=== PATIENT | male | born 1965 | race Caucasian/White ===

== ENCOUNTER → 2023-05-19 07:23 | Outpatient (REF) | payer BC, SELFPAY | LOC: RAD 07:23 | PROVIDERS: ATTENDING PHYSICIAN Internal Medicine | DX: S09.90XA Unspecified injury of head, initial encounter (principal); H53.9 Unspecified visual disturbance; R51.9 Headache, unspecified | CPT/HCPCS: 70450 ==

== ENCOUNTER 2024-07-10 22:17 | Inpatient (IN) | payer BC, SELFPAY ==
[2024-07-10] VITALS (10 sets, daily range): BP systolic 115–160; BP diastolic 73–145; BMI 31.4; BMI 29.9
--- NOTE | 2024-07-10 17:06 | ED.GENMED ---
History of Present Illness
General
Chief Complaint: Breathing Problem
Source: patient
Time Seen by Provider: 07/10/24 16:57
History of Present Illness
History of Present Illness:
59-year-old male presents to the emergency room complaining of shortness of breath with exertion as well as chest tightness with exertion. Patient noticed significant change in his ability to ambulate a couple days ago. He was getting off of
flight and became very short of breath walking up the chest with a ramp. He continued to feel short of breath with exertion at home over the weekend but today had to stop just going up a flight of steps because he was severely short of breath.
Patient denies any significant medical history. He was recently diagnosed with hypertension. However he is only taking Claritin. Patient states he has been experiencing some chest discomfort intermittently over the past 6 weeks. This did not
seem to be related to exertion. He attributed to allergies. Up until this weekend he was able to perform all activities without any limitations.
Past History
Past History
ED Past Medical History: None
Social History
Living: with family
Employment: Employed
Phy Exam
Physical Exam
Physical Exam:
General: Awake, Alert, Oriented X3. No acute distress.
Vitals: unremarkable
Head: Atraumatic
Eyes: Pupils equal, EOMI
Throat: Airway intact, no exudates
Neck: Trachea midline
Lungs: Clear and equal b/l
Heart: Regular rate, no murmurs
Abd: Soft, Nontender, No pulsatile mass
Neuro: nonfocal
Skin: Warm, dry, no rash
Extremities: pulses equal b/l, no edema
Scores
Heart Failure Risk
Heart Failure Risk Score: Not Applicable
PE Wells Score
Symptoms of DVT: No
No alternative diagnosis better explains the illness: Yes
Tachycardia with pulse > 100: No
Immobilization (>=3 days) or surgery within previous 4 weeks: No
Prior history of DVT or pulmonary embolism: No
Presence of hemoptysis: No
Presence of malignancy: No
Pulmonary Embolism Risk Score: 6
Probability of PE: Pt is moderate risk
Course
Orders/Labs/Results
Orders:
Orders
07/10/24 16:47
Electrocardiogram (*1) Urgent
Reason for Study: Other
Other Reason for Exam: Respiratory Distress
EKG- Treatment ONCE
07/10/24 17:05
CT Chest PE Study Urgent
Comment:
Reason For Exam: sob with minimal exertion
07/10/24 17:25
Complete Blood Count/With Diff Urgent
Comprehensive Metabolic Panel Urgent
NT-proBNP Urgent
Troponin I Urgent
07/10/24 17:26
D-Dimer Urgent
07/10/24 18:57
Heparin 8,900 units IV NOW STA
Nursing to Place Non Medication Order As Directed
Physician Order: PTT 6 hours after initial start of Heparin infusion
Above order entered?: Yes
07/10/24 19:00
Heparin 71083 Units/250 ml 25,000 units in 250 ml IV PER PROTOCOL
Weight to be used for heparin protocol in kilograms (kg):: 110.7
Protocol:: DVT/PE
PTT Goal Range to be used:: PTT 73 to 111 seconds
Order type:: Initial
INITIAL Infusion Dose (UNITS/KG/hr) & then follow protocol:: 18 units/kg/hr
Infusion Dose in UNITS/hr & then follow protocol (UNITS/hr):: 2,000
INFUSION RATE in mL/hr & then follow protocol (mL/hr):: 20
For DVT/PE algorithm, re-bolus for low PTT?: Yes
PTT less than or equal to 64 seconds:: Re-bolus 80 units/kg (max 10,000units). Increase by 500 units/hr
(+ 5mL/hr)
PTT 64.1 to 72.9 seconds:: Re-bolus 40 units/kg (max 5,000 units). Increase by 200 units/hr
(+ 2mL/hr)
PTT 73 to 111 seconds:: Target Range. No change in rate.
PTT 111.1 to 130.9 seconds:: Decrease rate by 200 units/hr (- 2 mL/hr)
PTT 131 to 199.9 seconds:: HOLD for 1 hr. Then decrease by 400 units/hr (- 4mL/hr)
PTT greater than or equal to 200 seconds:: HOLD for 2 hrs & Notify Provider. Then decrease by 500 units/hr
(- 5mL/hr)
Lab follow-up:: Each change, PTT q6h until 2 consecutive are therapeutic. Then
PTT daily.
07/10/24 19:08
Heparin 4,400 units IV PRN PRN
07/10/24 19:09
Heparin 8,900 units IV PRN PRN
07/10/24 19:23
PTT Urgent
Comment: Obtain baseline before beginning heparin infusion if not already collected
07/11/24 01:46
PTT Urgent
Comment: repeat PTT 6 hours post heparin
Abnormal Lab Results
07/10/24 07/10/24
17:25 17:26
Abs Immat Gran (auto) 0.1 H 10^3/uL
(0-0.05)
Absolute Monos (auto) 0.7 H 10^3/uL
(0.1-0.6)
Immature Gran % 0.7 H %
(0-0.5)
D-Dimer 17.57 H ug/mlFEU
(0.00-0.50)
Glucose 109 H mg/dl
(70-99)
Troponin I 0.088 H* ng/ml
07/10/24 17:25
07/10/24 17:25
Vital Signs
Initial and Last Documented VS:
Initial Vital Signs
Temp Pulse Resp BP Pulse Ox
97.9 F 95 22 160/103 94
07/10/24 16:43 07/10/24 16:43 07/10/24 16:43 07/10/24 16:43 07/10/24 16:43
Last Documented Vital Signs
Temp Pulse Resp BP Pulse Ox
97.9 F 83 17 159/145 98
07/10/24 16:43 07/10/24 20:00 07/10/24 20:00 07/10/24 20:00 07/10/24 20:00
MDM/Problems Addressed
Differential Diagnosis Includes:
PE, pneumothorax, pneumonia, acute coronary syndrome, heart failure
MDM/Problems Addressed:
Patient presents with severe shortness of breath minimal exertion. He has risk factors for PE and that he travels extensively. Hemodynamically stable. Not hypoxic here. Labs show a normal white blood cell count, hemoglobin, platelet count.
Chemistries are unremarkable. Troponin is elevated at 0.088. Based upon the patient's symptoms on presentation and overall story my suspicion for PE was quite high. A CTA was ordered immediately after my evaluation. His D-dimer did result as
highly elevated. I reviewed the patient's CTA as soon as return from radiology. It was evident he had significant clot burden bilaterally with a saddle component which appeared very thin. PERT alert was called. Case discussed with both Kisha.
Claire for pulmonary critical care as well as with Dr. Clifton he is on-call for interventional radiology. They both feel that if the patient is hemodynamically stable there is no benefit for intervention at this time. Heparin ordered immediately
after the patient's CT. Patient will be admitted for anticoagulation and further workup and close monitoring.
*Radiology
Radiology exam reviewed: preliminary read by ED provider (Extensive bilateral pulmonary emboli) and radiology read reviewed
*Pulse Oximetry
Patient hypoxic: no
*EKG
Interpreted by ED Provider?: Yes
Heart Rate: 92
Rate: normal
Rhythm: sinus
[place]: normal axis
Interval: normal interval
QRS Pattern: normal QRS
Ischemia: non-specific ST changes
*[employer] Interpretation
Rate: normal
Interpretation: normal
Rhythm: sinus
*Critical Care Note
Total Time (30-74mins, 75-104mins- exclusive of procedures): 42 min
comment:
Critical care statement: A total of 42 minutes of critical care time was provided for this patient. This includes management of unstable vital signs, evaluation of the patient at bedside, reviewing the patient's pertinent medical records, discussion
with consultants, review of old EKGs and review of pertinent medical records. This time with separate from time utilized to perform the aforementioned documented procedures
ED Attending Note
-
Portions of this chart may have been created with voice recognition software.� Occasional wrong word or��sound alike� substitutions may have occurred due to the inherent limitations of voice recognition software.
Discharge Plan
Departure
Patient Disposition: Admit
Date of Disposition: 07/10/24
Time of Disposition: 19:42
Admit to: IMU
Presentation/result/management discussed w/ accepting MD/DO: Hospitalist
Patient with high blood pressure during this ER visit?: No
Condition: Serious
Discharge Problem:
Pulmonary emboli
Prescriptions:
No Action
loratadine [Claritin] 10 mg Tablet
10 mg PO DAILYPRN PRN (Reason: allergies)
Referrals:
Yan Ryan MD [Family Provider] -
Interventions
Interventions:
*Risk Screen - Suicide Last Done: 07/10/24 16:43
*General Assessment Last Done: 07/10/24 16:43
*Neglect/Abuse Screening Last Done: 07/10/24 17:13
*ED- Fall Risk Assessment Last Done: 07/10/24 17:13
*ED COVID-19 Vaccine History Last Done: 07/10/24 17:13
ED- Cardiac Assessment Last Done: 07/10/24 17:13
ED- Pulmonary Assessment Last Done: 07/10/24 17:13
Discharge Date and Time
Print Language: TURKMEN
[2024-07-10 17:44] LABS: % Eosinophils 2.9 % (0-6); % Immature Granulocytes 0.7 % (0-0.5); % Monocytes 8.7 % (1.7-9.3); % Neutrophils 64.7 % (42.2-75.2); Absolute Basophils 0.1 10^3/uL (0-0.2); Absolute Eosinophils 0.2 10^3/uL (0-0.7); Absolute Immature Granulocytes 0.1 10^3/uL (0-0.05); Absolute Lymphocytes 1.8 10^3/uL (1.2-3.4); Absolute Monocytes 0.7 10^3/uL (0.1-0.6); Absolute Neutrophils 5.4 10^3/uL (1.4-6.5); Hematocrit 43.9 % (39.0-52.0); Mean Corp Hgb Conc. 34.2 g/dL (33.0-37.0); Mean Corpuscular Hgb 29.6 pg (27.0-31.0); Mean Corpuscular Volume 86.8 fL (80.0-94.0); Mean Platelet Volume 9.9 fL (7.4-10.4); Nucleated Red Blood Cells % 0 % (-); Platelet Count 187 10^3/uL (130-400); Red Blood Cell Count 5.06 10^6/uL (4.70-6.10); Red Cell Dist. Width 13.7 % (11.5-14.5); White Blood Cell Count 8.4 10^3/uL (4.8-10.8)
[2024-07-10 17:52] LABS: ALT (SGPT) 15 U/L (0-50); AST (SGOT) 21 U/L (17-59); Alkaline Phosphatase 66 U/L (38-126); Blood Urea Nitrogen 12 mg/dl (9-20); Calcium 9.4 mg/dl (8.4-10.2); Carbon Dioxide 29 mmol/L (22-30); Chloride 104 mmol/L (98-107); Estimated Creatinine Clearance 118 ml/min; Glucose 109 mg/dl (70-99); Potassium 4.5 mmol/L (3.5-5.1); Sodium 139 mmol/L (135-145); Total Bilirubin 0.6 mg/dl (0.2-1.3); Total Protein 6.9 g/dl (6.3-8.2); eGFR > 60.00
[2024-07-10 17:58] LABS: D-Dimer 17.57 ug/mlFEU (0.00-0.50)
[2024-07-10 18:03] LABS: NT-proBNP 940 pg/ml; Troponin I 0.088 ng/ml
[2024-07-10 19:40] LABS: APTT 34.3 Sec (23.4-35.0)
[2024-07-10] MEDS: HEPARIN 8900 UNITS IV (19:45)
[2024-07-10] MEDS: HEPARIN 25000 UNITS/250 ML IV (19:46)
--- NOTE | 2024-07-10 21:23 | HPS.HSE ---
Family Physician
-
Family Physician: Yan Ryan
Chief Complaint
-
shortness of breath
History of Present Illness
Is a 59-year-old male with no known severe past medical history presenting to the emergency department with approximately 3 days of worsening shortness of breath and dyspnea on exertion.
Patient reports that he frequently flies between [place] and to [facility] for his walk. He reports that during his most recent flight to he started having shortness of breath and pain weakness and inability to even lift his luggage. This was
associated with some burning pain in his left upper chest. There was improvement and was able to golf the next day which was Wednesday. He flew back to [place] on Wednesday and since then he feels like he has been having congestion in his chest.
He has a mild dry cough which has been ongoing for several weeks and he attributes to allergies and GERD. Patient reports over the last 2 days he was even having trouble walking a flight of stairs. Denies feeling dizzy or lightheaded. He reports
chest pain in the substernal region without any radiation. Worse with inspiration. He denies any lower extremity swelling or calf tenderness. Reports family history of IN at a young age as well as breast cancer. He denies any personal history of
breast cancer. He reported that he had a negative COVID test this morning and read to his PMD.
In the emergency department here he was afebrile, oxygen saturation was 93 to 95% on room air. Blood pressure was 128/81 with a pulse of 98. ECG shows normal sinus rhythm at rate of 92. His troponin was elevated at 0.08. BNP was also slightly
elevated at 900. CBC unremarkable. Electrolytes BUN/creatinine were normal.
He had a CT of the chest with PE protocol which showed bilateral upper and lower lobe large volume pulmonary embolism with faint saddle embolism. The RV to LV ratio is 1.4.
Medical History
Past Medical History
Past Medical History: Reports Other (sinus allergies)
Past Surgical History: Reports None
Social History
Tobacco: Non-smoker
Alcohol: None
Drug: None
Personal:
Living: With Family
Employment: Not Employed
Family History
Family History: Early CAD and Cancer (mother breast ca)
Allergies / Home Medications
Allergies reflects when Allergies were last updated in [facility].
Home Medications with original date entered in [facility]
Allergy/Medication List:
Allergies
Allergy/AdvReac Type Severity Reaction Status Date / Time
No Known Drug Allergies Allergy NA Verified 07/10/24 16:43
apples,nuts,fresh fruits Allergy scratchy Uncoded 07/10/24 16:43
throat and
congestion
Home Medications
loratadine 10 mg tablet (Claritin) 10 mg PO DAILYPRN PRN allergies 07/10/24
Review of Systems
-
History Source: Patient
Constitutional: Reports No Symptoms
EENT: Reports No Symptoms
Respiratory: Reports No Symptoms
Cardiac: Reports No Symptoms
Abdomen/GI: Reports No Symptoms
: Reports No Symptoms
Musculoskeletal: Reports No Symptoms
Skin: Reports No Symptoms
Neurological: Reports No Symptoms
Endocrine: Reports No Symptoms
Hematologic/Lymphatic: Reports No Symptoms
Psych: Reports No Symptoms
Physical Exam
Vital Signs
Vital Signs
Temp Pulse Resp BP Pulse Ox
97.9 F 98 25 128/81 95
07/10/24 16:43 07/10/24 21:00 07/10/24 21:00 07/10/24 21:00 07/10/24 21:00
Physical Exam
General: Well Developed, Well Nourished, No Apparent Distress and Comfortable
HEENT: NormoCephalic, Anicteric, Moist mucous membranes and Atraumatic
Respiratory: Clear
Cardiac: S1/S2 and Regular Rhythm
Breast: Deferred by me
GI: Soft, Non Tender, Non Distended and Normal Bowel Sounds
Rectal: Deferred by Provider
Genito-urinary: Deferred by me
Musculoskeletal: No Clubbing, No Cyanosis and No Edema
Skin: Warm
Neuro: AO x 3 and Nonfocal/grossly intact
Hematologic/Lymphatic: No Lymphadenopathy
Psych: Calm
Laboratory Results
-
07/10/24 17:25
07/10/24 17:25
Laboratory Results
APTT 34.3 Sec (23.4-35.0) 07/10/24 19:23
Total Bilirubin 0.6 mg/dl (0.2-1.3) 07/10/24 17:25
AST 21 U/L (17-59) 07/10/24 17:25
ALT 15 U/L (0-50) 07/10/24 17:25
Alkaline Phosphatase 66 U/L (38-126) 07/10/24 17:25
Troponin I 0.088 ng/ml H* 07/10/24 17:25
Data Reviewed
-
CT Scan: Report Reviewed by me
Medical Tests (Nuc Med, Echo, EKG etc): Image Personally Visualized and interpreted
Lab Data: Labs Reviewed by me
Old Records: Reviewed
Impression/Plan
-
IMPRESSION:
59-year-old with no significant medical history presented to the emergency department with dyspnea on exertion, shortness of breath found to have bilateral pulmonary emboli with thin saddle PE. He is hemodynamically stable. He does have a mild
troponin elevation of 0.08. RV to LV ratio of 1.4. Evaluated by the pulmonary and IR, no indication for acute interventional procedure at this time.
PLAN:
PE -presumably provoked due to frequent long flights across the country. No family history. Negative covid test.
- admit to telemetry
- continue heparin gtt for now
- npo for now except sips and ice
- pain control as needed
- oxygen as needed
- if stable, can advance diet in am and transition
- trend troponin, echo in am
Code Status - Full code
[2024-07-11] MEDS: D5/0.9% SODIUM CHLORIDE 1000 IV ×2 (00:04→15:24)
[2024-07-11 01:01] LABS: Troponin I 0.046 ng/ml
[2024-07-11 02:28] LABS: APTT > 200.0 Sec (23.4-35.0)
--- NOTE | 2024-07-11 02:30 | PTCARENOTE ---
Notified House Provider Sridhar Woods that pt's PTT>200. Hep gtt now on hold for 2 hrs then will be restarted at 1500 units/hr or 15mL/hr per protocol.
[2024-07-11 03:46] VITALS: BP 116/75
[2024-07-11] MEDS: PROTONIX 40 MG PO (07:23)
[2024-07-11 07:46] VITALS: BP 114/77
[2024-07-11 07:51] LABS: Hematocrit 42.2 % (39.0-52.0); Hemoglobin 14.4 g/dL (13.0-18.0); Mean Corp Hgb Conc. 34.1 g/dL (33.0-37.0); Mean Corpuscular Hgb 29.8 pg (27.0-31.0); Mean Corpuscular Volume 87.2 fL (80.0-94.0); Mean Platelet Volume 9.8 fL (7.4-10.4); Platelet Count 173 10^3/uL (130-400); Red Blood Cell Count 4.84 10^6/uL (4.70-6.10); Red Cell Dist. Width 13.6 % (11.5-14.5)
[2024-07-11 08:05] LABS: APTT 62.4 Sec (23.4-35.0)
[2024-07-11 08:10] LABS: Troponin I 0.013 ng/ml
[2024-07-11 08:15] LABS: Blood Urea Nitrogen 7 mg/dl (9-20); Calcium 9.1 mg/dl (8.4-10.2); Carbon Dioxide 28 mmol/L (22-30); Chloride 106 mmol/L (98-107); Estimated Creatinine Clearance 105 ml/min; Glucose 108 mg/dl (70-99); Potassium 4.2 mmol/L (3.5-5.1); Sodium 141 mmol/L (135-145); eGFR > 60.00
--- NOTE | 2024-07-11 08:18 | CON.PUL ---
Consultation
Consultation Request
Date/Time Consultation Requested: 07/10/2024 - 2315
Date/Time Consultation Performed: 07/11/2024813
Requesting Provider: Dr. Redman
Performing Provider: Dr. Graham
Reason for Consultation: Saddle PE
Medical History
-
Chief Complaint: Chest tightness + SOB
History of Present Illness:
59-year-old male with a past medical history of hyperlipidemia, hypertension, GERD, hiatal hernia, internal hemorrhoids and chronic sinusitis who presents with chest tightness + SOB. He went up a flight of steps prior to arrival on 07/10/2024 and
felt severely short of breath, which then made him come to the ER for evaluation. 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 He reported that during his most recent flight he began having
SOB and pain where he could not properly lift his luggage. Pain was described as a burning sensation in his left upper chest. This did improve, however, and he was able to play golf the next day which was this past Wednesday (07/08/2024). He has
had a mild cough which has been nonproductive for the last several weeks and attributes this to allergies and reflux. Over the last 2 days he has had substernal chest pain that worsens with a deep breath and SOB with stairs. Because he was
severely short of breath while going up the steps prior to arrival, this is what brought him to the ER. Initially he was afebrile to 97.9 �F, pulse rate 95, respiratory rate 22, BP 160/103 and saturating 94% on room air. Initial labs showed WBC
WNL at 8.4, Hb 15, platelet count 187, troponin 0.088, proBNP 940 and D-dimer significantly elevated at 17.57. CTA chest obtained showing an acute saddle PE with RV strain. PE extended to all lobes of the lung bilaterally. He was started on a
heparin infusion in the ER and admitted to telemetry. Pulmonary service now consulted for additional management/recommendations.
When I saw the patient, he was resting in a chair in no acute distress. Patient's , Adam, at bedside and all questions were answered. Patient currently on room air breathing comfortably. He denies chest pain, CARROLL, nausea, fevers or chills.
His breathing is actually improved today since being on heparin drip.
PMHx: Chronic sinusitis, internal hemorrhoids, GERD, hiatal hernia, hypertension, hyperlipidemia, family history of early CAD
PSHx: Tonsillectomy
Past Medical History
Past Medical History: Other (Above as per HPI)
Past Surgical History: Other (Above as per HPI)
Social History
Tobacco: Non-smoker
Alcohol: Occasional
Drug: None
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
Family History
Family History: CAD (Father), Cancer (Mother: Breast cancer + leukemia; Sister: Breast cancer), Diabetes (Maternal grandmother) and Other (Mother: Thyroid disease)
Allergies / Home Medications
Allergies
Allergy/AdvReac Type Severity Reaction Status Date / Time
No Known Drug Allergies Allergy NA Verified 07/10/24 16:43
apples,nuts,fresh fruits Allergy scratchy Uncoded 07/10/24 16:43
throat and
congestion
Home Medications
�Medication �Instructions �Recorded �Confirmed �Last Taken �Type
loratadine 10 mg tablet (Claritin) 10 mg PO DAILYPRN PRN allergies 07/10/24 07/10/24 07/09/24 History
Review of Systems
-
History Source: Patient
All other systems: Negative unless noted
Vitals / Labs / Diagnostic Testing
Vital Signs
Temp Pulse Resp BP Pulse Ox
98.2 F 85 18 114/77 94
07/11/24 07:46 07/11/24 07:46 07/11/24 07:46 07/11/24 07:46 07/11/24 07:46
Lab Data
07/11/24 07:30
07/11/24 07:30
Laboratory Results
07/10/24 07/11/24 07/11/24
19:23 01:40 07:30
APTT 34.3 > 200.0 H* 62.4 H
Diagnostic Testing:
Physical Exam
-
HEENT: Normocephalic and Anicteric
Cardiovascular: S1/S2 and Peripheral Edema (negative)
Respiratory: Clear, Wheeze (negative), Rales (negative), Rhonchi (negative) and Accessory Resp Muscle Use (negative)
GI: Soft, Non Distended, Non Tender and Normal Bowel Sounds
Neurology: AO x 3 and Tremors (negative)
Skin: Warm and Dry
General: Respiratory Distress (negative), Comfortable, Fever (negative) and Chills (negative)
Assessment
-
Assessment: 59-year-old male with a past medical history of hyperlipidemia, hypertension, GERD, hiatal hernia, internal hemorrhoids and chronic sinusitis who presents with chest tightness + SOB. He went up a flight of steps prior to arrival on
07/10/2024 and felt severely short of breath, which then made him come to the ER for evaluation. 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 He reported that during his most recent flight he
began having SOB and pain where he could not properly lift his luggage. Pain was described as a burning sensation in his left upper chest. This did improve, however, and he was able to play golf the next day which was this past Wednesday
(07/08/2024). He has had a mild cough which has been nonproductive for the last several weeks and attributes this to allergies and reflux. Over the last 2 days he has had substernal chest pain that worsens with a deep breath and SOB with stairs.
Because he was severely short of breath while going up the steps prior to arrival, this is what brought him to the ER. Initially he was afebrile to 97.9 �F, pulse rate 95, respiratory rate 22, BP 160/103 and saturating 94% on room air. Initial
labs showed WBC WNL at 8.4, Hb 15, platelet count 187, troponin 0.088, proBNP 940 and D-dimer significantly elevated at 17.57. CTA chest obtained showing an acute saddle PE with RV strain. PE extended to all lobes of the lung bilaterally. He was
started on a heparin infusion in the ER and admitted to telemetry. Pulmonary service now consulted for additional management/recommendations.
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
Impression:
#Acute saddle submassive PE with high risk features (PESI score: Class II --> Low risk) likely provoked given recent history of frequent long flights across country + sedentary at home for his job
#Elevated troponin likely due to above (troponin peaked at 0.088 on 07/10/2024)
#Elevated proBNP likely due to acute PE
#Right lower extremity DVT involving femoral + popliteal veins
Plan:
- Patient presented with chest tightness, SOB + dyspnea on exertion and was found to have a saddle pulmonary embolism with RV strain seen both radiographically and chemically
- No family Hx of DVT or PE; no personal Hx of malignancy and no prior Hx of VTE; he will need to obtain age-appropriate cancer screening testing after discharge (i.e. c-scope, PSA)
- He says he is usually on the road for his job and when he is home he is on [employer] teams for sometimes hours on - this puts him at an increased risk for a DVT/PE
- Need to check a transthoracic echo --> shows a mildly enlarged RV with normal RV systolic function, with severe pulmonary hypertension with PASP 74 mmHg with moderate TR
- He remains normotensive with minimal tachypnea and no hypoxia; no need for catheter directed thrombolysis or embolectomy at this time; also echo shows severe PH but with normal RV systolic function, hence no need for retrievable IVC filter at
this time
- Heparin drip started in the ER
- Continue with systemic AC and after 48 hrs of parenteral AC then would switch to NOAC, preferably Eliquis
- Duplex lower extremity US shows a right lower extremity DVT involving the femoral + popliteal veins
- CM consult to assess if Eliquis is affordable
- Usually I recommend outpatient hematology consult for hypercoagulable workup and to assist with duration of AC - given that this clot is likely provoked, unclear if hematology consult is needed
- Bedrest for 24-48 hours given the large clot burden in this patient with a saddle PE and proximal DVTs in RLE
- Maintain SpO2 >90-94% with supplemental O2 as needed
- prn nebulized bronchodilators - not currently bronchospastic
- Incentive spirometer encouraged q1hr while awake
- Replete electrolytes with K>4, Mg>2
- Trend H/H and transfuse if needed to keep Hb>7g/dL; keep plt>20k, unless there is concern for bleeding then keep plt>50k
- Maintain euglycemia with goal BG >100 and <180
- DVT ppx: heparin gtt
Pulmonary service will continue to follow along. Outpatient pulmonary office follow-up will be arranged to repeat echo, check full PFTs and to assure his symptoms of SOB/PRATER are improving
Data:
CTA Chest 07/10/2024: Bilateral upper and lower lobe large volume pulmonary embolism. The RV to LV ratio is 1.4.
Pulmonary artery branching order level of the most proximal pulmonary embolism: First order/central thin saddle embolism.
Peripheral lower extremity Duplex US 07/11/2024:DVT of the right femoral and popliteal veins.
Total time spent today was 58 minutes for this encounter. Time includes reviewing laboratory test/imaging results, reviewing pertinent medical records, obtaining and reviewing medical history, performing an appropriate exam, ordering medications,
tests and procedures. Time also includes documentation of this encounter, coordinating patient care and communicating with other healthcare professionals. Total time does not include separately billed tests performed on this date of service.
--- NOTE | 2024-07-11 10:29 | W.PN.HOSP.TC ---
Today's Communication/Plan
-
see PN
Assessment / Plan
Assessment / Plan
59yo M with PMHX of atopic d/o came with SOB on excertion started after 5hour flight. 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 Found pulmonary embolism and LE DVT
A/P:
#Acute provoked VTE
Heparin drip for 48h then DOAC
Pulm consult
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
CT abd/pelvis to complete survey for overt CA signs
PESI 68 points, class II low risk
Age appropriate CA screening as outpatient advised: patient has established GI for colonoscopy, seen Urologist 6-9mo ago with (as per patient) reportedly normal PSA
#Elevated troponin, non-ischemic myocardial injury
#Chronic chest pressure, atypical
#TWI in inferior leads
Hx of early ACS in father
Trop normalized - 0.088-0.046-0.013 - most liekly 2/2 PE
Echo
telemetry
Cardiology consult
check TSH and LDL
DVT ppx on hep drip
Full code
I have spent at least 58min reviewing chart, test results, communication with consultantants, family and providing direct patient care
Anticipated Discharge: 24 - 48 hours
Subjective/Interval History
-
Date of Service: July 11, 2024
Objective Data
-
Labs:
Laboratory Results
07/11/24 07/11/24
01:40 07:30
WBC 8.0
Hgb 14.4
Hct 42.2
Plt Count 173
APTT > 200.0 H* 62.4 H
Sodium 141
Potassium 4.2
Chloride 106
Carbon Dioxide 28
BUN 7 L
Creatinine 0.9
Glucose 108 H
Calcium 9.1
Vital Signs:
Vital Signs
Temp Pulse Resp BP Pulse Ox
98.2 F 85 18 114/77 94
07/11/24 07:46 07/11/24 07:46 07/11/24 07:46 07/11/24 07:46 07/11/24 07:46
I&O
07/10/24 07/11/24 07/12/24
06:59 06:59 06:59
Intake Total 645 / 645
Balance 645 / 645
Review of Systems
-
History Source: Patient
All other systems: Reviewed and negative
Cardiac: Reports Chest Pain
Physical Exam
-
General: No Apparent Distress
HEENT: Normocephalic, Atraumatic and Moist Mucous Membranes
Respiratory: Clear to Auscultation
Cardiac: Regular Rhythm
Musculoskeletal: No Clubbing, No Cyanosis and No Edema
Neuro: Awake, Alert, Oriented and AO x 3
Psych: Calm
[2024-07-11] MEDS: HEPARIN 8900 UNITS IV (11:05)
[2024-07-11] MEDS: OMNIPAQUE 50 ML PO (11:08)
[2024-07-11 11:23] LABS: HDL Cholesterol 29 mg/dl; LDL Cholesterol, Calculated 114 mg/dl; Total Cholesterol 164 mg/dl (50-199); Triglyceride 107 mg/dl (10-149); Very Low Density Lipoprotein 21 mg/dl (0-30)
[2024-07-11 11:45] LABS: APTT 60.4 Sec (23.4-35.0)
[2024-07-11 11:46] VITALS: BP 136/90
[2024-07-11] MEDS: HEPARIN 25000 UNITS/250 ML IV ×2 (12:11→23:37)
--- NOTE | 2024-07-11 14:38 | CON.CAR ---
Addendum entered and electronically signed by Kwame Packer DO 07/11/24 15:23:
I saw and examined the patient.
The Shoe Cementer's note was reviewed and I agree with the note.
Comment:
Plan:
HPI: Patient is a 59-year-old male with past medical history of GERD, seasonal allergies, family history of premature CAD, who frequently travels for work from [place] to [place], [place]. He reports for several weeks feeling congestion and GERD
type of feelings, without significant improvement with medication. Within the last week he noted dyspnea on exertion while walking up inclines and presented to ER for evaluation. He underwent imaging which showed PE. In setting of this troponin
peaked at 0.088 and is trending down. On IV heparin. He reports his chest pressure has resolved. Echo showed preserved EF with moderate TR and severe pulmonary hypertension. Cardiology consulted for evaluation. He denies history of clotting,
recent trauma, history of connective tissue disorders, history of CHF or lung disease.
Plan:
Cont tx for PE with anticoagulation and work up
Echo reviewed personally and reviewed with pt and family at bedside.
Findings consistent with PE
Outpt follow up echo to eval for improvement in TR and RV
Outpt consideration for ischemic evaluation.
Outpt follow up to be arranged.
Stable cv status
please recall if needed.
Original Note:
Consultation
Consultation Request
Date/Time Consultation Performed: 07/11/24
Requesting Provider: Dr. Lewis
Performing Provider: Lakshmi Brandt PA-C for Dr. Packer
Reason for Consultation: elevated troponin
Medical History
-
Chief Complaint: PRATER/chest pressure
History of Present Illness:
Patient is a 59-year-old male with past medical history of GERD, seasonal allergies, family history of premature CAD, who frequently travels for work from [place] to [place], [place]. He reports for several weeks feeling congestion and GERD type
of feelings, without significant improvement with medication. Within the last week he noted dyspnea on exertion while walking up inclines and presented to ER for evaluation. He underwent imaging which showed PE. In setting of this troponin peaked
at 0.088 and is trending down. On IV heparin. He reports his chest pressure has resolved. Echo showed preserved EF with moderate TR and severe pulmonary hypertension. Cardiology consulted for evaluation. He denies history of clotting, recent
trauma, history of connective tissue disorders, history of CHF or lung disease.
PMH:
GERD
Seasonal allergies
Family history of premature CAD
Frequent travel for work
Past Medical History
Past Medical History: Other (in HPI)
Social History
Tobacco: Non-Smoker
Alcohol: None
Drug: None
Personal:
Living: With Family
Employment: Employed
Family History
Family History: Early CAD
Allergies / Home Medications
Allergy/AdvReac Type Severity Reaction Status Date / Time
No Known Drug Allergies Allergy NA Verified 07/10/24 16:43
apples,nuts,fresh fruits Allergy scratchy Uncoded 07/10/24 16:43
throat and
congestion
�Medication �Instructions �Recorded �Confirmed �Type
loratadine 10 mg tablet (Claritin) 10 mg PO DAILYPRN PRN allergies 07/10/24 07/10/24 History
Review of Systems
-
History Source: Patient and Family
All other systems: Negative unless noted
Physical Exam
Vital Signs
Temp Pulse Resp BP Pulse Ox
97.7 F 80 18 136/90 95
07/11/24 11:46 07/11/24 11:46 07/11/24 11:46 07/11/24 11:46 07/11/24 11:46
Lab Results
07/11/24 07:30
07/11/24 07:30
Troponin I 0.013 ng/ml D 07/11/24 07:30
Atq-O-Bhkcrwsdyrn Pept 940 pg/ml 07/10/24 17:25
Physical Exam
General: No Apparent Distress, Comfortable and Other (sitting in chair)
HEENT: Normocephalic, Anicteric and Moist Mucous Membranes
Respiratory: Clear and Non Labored Respirations
Cardiac: S1/S2 and Regular Rhythm
GI: Soft, Non Tender, Non Distended and Normal Bowel Sounds
Musculoskeletal: No Clubbing, No Cyanosis and No Edema
Skin: Warm and Dry
Neuro: AO x 3
Impression / Plan
-
Primary supercharge repair supervisor: Dr. Antonio
Assessment:
Presentation with chest pressure and dyspnea on exertion
Provoked B/L large volume PE, with frequent travel for work
Sinus tachycardia
Elevated troponin, suspected nonischemic myocardial injury secondary to above
GERD
Seasonal allergies
Family history of premature CAD
Small hiatal hernia
Stress echo 03/04/23: Normal stress echo with good exercise capacity for age, low risk stress test
ECHO 07/11/2024: EF 55 to 60%, mildly enlarged RV with normal RV systolic function, mild concentric LVH, moderate TR, PAP 74 mmHg
Plan:
- Patient presented with chest pressure and dyspnea on exertion and was found to have bilateral large volume PE by chest CT.
- On IV heparin. Eventual transition to DOAC
- Sinus tachycardia on review of telemetry, no arrhythmias noted
- Troponin peaked at 0.088 and subsequently trended down. EKG SR without acute ischemic changes noted. Suspected nonischemic myocardial injury secondary to large volume PE. Stress echo 02/2023 was low risk as above. Could consider outpatient
stress testing once recovered from PE
- Reviewed results of echocardiogram with patient and at bedside. Suspect findings of moderate to TR and severe pulmonary hypertension are secondary to large volume PE. Would recommend repeat echocardiogram in several months to assess for
resolution
- LDL 114. continue risk factor modification, ideally LDL<100.
- Will arrange outpatient cardiac follow-up
Data Reviewed
-
EKG: Tracing Personally Visualized and interpreted
CT Scan: Report Reviewed by me
Medical Tests (Nuc Med, Echo etc): Report Reviewed by me
Labs: Labs Reviewed by me
Old Records: Reviewed
[2024-07-11 15:10] VITALS: BP 141/100
[2024-07-11 15:22] LABS: TSH Reflex To Free T4 3.98 uIU/ml (0.47-4.68)
--- NOTE | 2024-07-11 16:44 | CM ---
channel marketing program manager reviewed patient's chart and met with patient and patient reports that he resides with his spouse and family is independent with adl's and ambulation, no dme, patient drives, plan is to home when stable, no needs.
PCP: Dr. Ryan
Pharmacy: [facility] in [place]
Plan; Home when stable, no needs.
[2024-07-11 17:35] LABS: APTT 88.7 Sec (23.4-35.0)
[2024-07-11 19:00] VITALS: BP 136/95
[2024-07-11 22:37] VITALS: BP 134/76
[2024-07-12 01:21] LABS: APTT 98.7 Sec (23.4-35.0)
[2024-07-12 03:45] VITALS: BP 113/83
[2024-07-12 07:14] VITALS: BP 133/90
[2024-07-12] MEDS: PROTONIX PO (07:15)
--- NOTE | 2024-07-12 09:17 | W.PN.PUL3 ---
Today's Communication / Plan
-
Eliquis
Up OOB as tolerated
Consider outpatient hematology consult for hypercoagulable workup and to discuss duration of AC
Outpatient pulmonary office follow-up for symptom checkup, full PFTs and re-check echo
No additional recommendations at this time. Pulmonary service will now sign off. Please reconsult if there are any additional questions/concerns, or if patient's respiratory status deteriorates.
Assessment
-
Assessment: 59-year-old male with a past medical history of hyperlipidemia, hypertension, GERD, hiatal hernia, internal hemorrhoids and chronic sinusitis who presents with chest tightness + SOB. He went up a flight of steps prior to arrival on
07/10/2024 and felt severely short of breath, which then made him come to the ER for evaluation. 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 He reported that during his most recent flight he
began having SOB and pain where he could not properly lift his luggage. Pain was described as a burning sensation in his left upper chest. This did improve, however, and he was able to play golf the next day which was this past Wednesday
(07/08/2024). He has had a mild cough which has been nonproductive for the last several weeks and attributes this to allergies and reflux. Over the last 2 days he has had substernal chest pain that worsens with a deep breath and SOB with stairs.
Because he was severely short of breath while going up the steps prior to arrival, this is what brought him to the ER. Initially he was afebrile to 97.9 �F, pulse rate 95, respiratory rate 22, BP 160/103 and saturating 94% on room air. Initial
labs showed WBC WNL at 8.4, Hb 15, platelet count 187, troponin 0.088, proBNP 940 and D-dimer significantly elevated at 17.57. CTA chest obtained showing an acute saddle PE with RV strain. PE extended to all lobes of the lung bilaterally. He was
started on a heparin infusion in the ER and admitted to telemetry. Pulmonary service now consulted for additional management/recommendations.
Chronic conditions FILM RECORDIST: Chronic sinusitis, internal hemorrhoids, GERD, hiatal hernia, hypertension, hyperlipidemia, family history of early CAD
Impression:
#Acute saddle submassive PE with high risk features (PESI score: Class II --> Low risk) likely provoked given recent history of frequent long flights across country + sedentary at home for his job
#Elevated troponin likely due to above (troponin peaked at 0.088 on 07/10/2024)
#Elevated proBNP likely due to acute PE
#Right lower extremity DVT involving femoral + popliteal veins
Plan:
- Patient presented with chest tightness, SOB + dyspnea on exertion and was found to have a saddle pulmonary embolism with RV strain seen both radiographically and chemically
- No family Hx of DVT or PE; no personal Hx of malignancy and no prior Hx of VTE; he will need to obtain age-appropriate cancer screening testing after discharge (i.e. c-scope, PSA)
- He says he is usually on the road for his job and when he is home he is on [employer] for sometimes hours on - this puts him at an increased risk for a DVT/PE
- Transthoracic echo from yesterday showed: mildly enlarged RV with normal RV systolic function, with severe pulmonary hypertension with PASP 74 mmHg with moderate TR
- He remains normotensive with minimal tachypnea and no hypoxia; no need for catheter directed thrombolysis or embolectomy at this time; also echo shows severe PH but with normal RV systolic function, hence no need for retrievable IVC filter at
this time
- Heparin drip started in the ER
- Okay to change to Eliquis today starting at 10 mg PO BID x 7 days, then with 5 mg BID afterwards
- Duplex lower extremity US shows a right lower extremity DVT involving the femoral + popliteal veins
- CM consult to assess if Eliquis is affordable
- Usually I recommend outpatient hematology consult for hypercoagulable workup and to assist with duration of AC - given that this clot is likely provoked, unclear if hematology consult is needed
- Ok to be up OOB now that it has been >24 hrs since therapeutic on heparin gtt
- Maintain SpO2 >90-94% with supplemental O2 as needed
- prn nebulized bronchodilators - not currently bronchospastic
- Incentive spirometer encouraged q1hr while awake
- Replete electrolytes with K>4, Mg>2
- Trend H/H and transfuse if needed to keep Hb>7g/dL; keep plt>20k, unless there is concern for bleeding then keep plt>50k
- Maintain euglycemia with goal BG >100 and <180
- DVT ppx: Eliquis
No additional recommendations at this time. Outpatient pulmonary office follow-up will be arranged to repeat echo, check full PFTs and to assure his symptoms of SOB/PRATER are improving. Pulmonary service will now sign off. Thank you for allowing us
to be involved in the care of this patient. Please reconsult if there are any additional questions/concerns, or if patient's respiratory status deteriorates.
Data:
CTA Chest 07/10/2024: Bilateral upper and lower lobe large volume pulmonary embolism. The RV to LV ratio is 1.4.
Pulmonary artery branching order level of the most proximal pulmonary embolism: First order/central thin saddle embolism.
Peripheral lower extremity Duplex US 07/11/2024:DVT of the right femoral and popliteal veins.
Total time spent today was 39 minutes for this encounter. Time includes reviewing laboratory test/imaging results, reviewing pertinent medical records, obtaining and reviewing medical history, performing an appropriate exam, ordering medications,
tests and procedures. Time also includes documentation of this encounter, coordinating patient care and communicating with other healthcare professionals. Total time does not include separately billed tests performed on this date of service.
Subjective Data
-
Date of Service:
Date of Service: July 12, 2024
Chief Complaint: Pulmonary Follow Up
Subjective:
Patient was seen and evaluated this morning. Patient feels well, no chest pain, SOB with rest, or fevers or chills reported. Still slightly SOB with activity but is markedly improved. Right leg behind the knee also still slightly sore but much
better overall. Currently denies CARROLL, abdominal pain, diarrhea, or nausea.
Review of Systems
General: Other (Negative unless mentioned above)
Objective Data
Data Reviewed
Vital Signs / I&O / Oxygen:
Vital Signs
Temp Pulse Resp BP Pulse Ox
98.9 F 70 18 133/90 98
07/12/24 07:14 07/12/24 07:14 07/12/24 07:14 07/12/24 07:14 07/12/24 07:15
Intake and Output
07/11/24 07/12/24 07/13/24
06:59 06:59 06:59
Intake Total 645 / 645 720 / 720
Balance 645 / 645 720 / 720
SaO2 98
Physical Exam
General: Respiratory Distress (negative), Comfortable, Chills (negative) and Sweats (negative)
HEENT: Normocephalic and Anicteric
Cardiovascular: S1-S2, Rub (negative) and Peripheral Edema (negative)
Respiratory: Clear, Wheeze (negative), Crackles (negative), Rhonchi (negative) and Non-Labored Respirations
GI: Soft, Non Distended, Non Tender and Normal Bowel Sounds
Neurology: AO x 3 and Tremors (negative)
Skin: Warm, Dry, Cyanosis (negative) and Jaundice (negative)
Labs/Micro/Reports
Lab Data
07/11/24 07:30
07/11/24 07:30
Laboratory Results
07/11/24 07/11/24 07/11/24
11:14 17:01 23:25
APTT 60.4 H 88.7 H Cancelled
07/12/24 07/12/24 07/12/24
00:01 00:53 07:56
APTT Cancelled 98.7 H 114.0 H
--- NOTE | 2024-07-12 11:03 | W.PN.HOSP.TC ---
Today's Communication/Plan
-
dc
Assessment / Plan
Assessment / Plan
59yo M with PMHX of atopic d/o came with SOB on excretion started after 5hour flight. 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 Found pulmonary embolism and LE DVT. Asset Protection Professional evaluated for chest pain and will wollow as outpatient. Medically
stable for d/c home
A/P:
#Acute provoked VTE
Heparin drip for 48h then DOAC
Pulm consult
Outpatient account director
CT abd/pelvis without acute findings
PESI 68 points, class II low risk
Age appropriate CA screening as outpatient advised: patient has established GI for colonoscopy, seen Urologist 6-9mo ago with (as per patient) reportedly normal PSA
#Elevated troponin, non-ischemic myocardial injury
#Chronic chest pressure, atypical
#TWI in inferior leads
Hx of early ACS in father
Trop normalized - 0.088-0.046-0.013 - most liekly 2/2 PE
Echo: no regional wall motion abnormalities, normal EF, elevated pulmonary pressure 2/2 PE
telemetry
Cardiology consult
TSH WNL
LDL elevated - add stgatin
DVT ppx on hep drip
Full code
I have spent at least 38min reviewing chart, test results, communication with consultantants, family and providing direct patient care
Anticipated Discharge: Today
Subjective/Interval History
-
Date of Service: July 12, 2024
Objective Data
-
Labs:
Laboratory Results
07/11/24 07/12/24 07/12/24
23:25 00:01 00:53
APTT Cancelled Cancelled 98.7 H
07/12/24 07/12/24
07:56 14:00
APTT 114.0 H Pending
Vital Signs:
Vital Signs
Temp Pulse Resp BP Pulse Ox
98.9 F 70 18 133/90 98
07/12/24 07:14 07/12/24 07:14 07/12/24 07:14 07/12/24 07:14 07/12/24 07:15
I&O
07/11/24 07/12/24 07/13/24
06:59 06:59 06:59
Intake Total 645 / 645 720 / 720
Balance 645 / 645 720 / 720
Review of Systems
-
History Source: Patient
All other systems: Reviewed and negative
Physical Exam
-
General: No Apparent Distress
HEENT: Normocephalic
Neuro: Awake, Alert, Oriented and AO x 3
Psych: Calm
--- NOTE | 2024-07-12 11:09 | W.DCSUMMARY ---
Discharge Summary
Discharge Data
Date of Admission: 07/10/24
Date of Discharge: 07/12/24
-
Pending Results: No
Hospital Course
59yo M with PMHX of atopic d/o came with SOB on excretion started after 5hour flight. 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 Found pulmonary embolism and LE DVT. Golf Teacher evaluated for chest pain and will wollow as outpatient. Medically
stable for d/c home. [employer] coverage confirmed and coupon for started pack provided
I have spent at least 38min reviewing chart, test results, communication with consultantants, family and providing direct patient care
Patient was managed for:
#Acute provoked VTE
#Elevated troponin, non-ischemic myocardial injury
#Chronic chest pressure, atypical
#TWI in inferior leads
#HLD
Discharge Plan
-
Patient Disposition: Home (Routine Discharge)
Discharge Diagnosis/Procedures: VTE
Diet: Regular
Activity: No restrictions
Driving Restrictions: As prior to admission
Others Tests: follow up echocardiogram 09/06/24 @ 8:20AM at [facility] cardiac services
Referrals:
Adrian Graham MD [Active] - in four to six weeks (full PFTs on day of office visit)
Lakia Huynh CRNP [Specified Professional Personl] - 09/08/24 4:00 pm (You have a cardiology follow-up appointment at the [place] office with Dr. Antonio's nurse practitionerLakia. Please call with questions)
Yan Ryan MD [Family Provider] - in less than 1 week (age-appropriate cancer screening)
Micky Lara MD [Active] - in four to six weeks (coagulopathy workup)
Prescriptions:
New
Eliquis DVT-PE Treat 30D Start 5 mg (74 tabs) tablets,dose pack
See Rx Instructions .ROUTE .COMPLEX Qty: 74 0RF
Rx Instructions:
orally per package directions
atorvastatin 20 mg Tablet
20 mg PO QPM Qty: 30 0RF
pantoprazole 40 mg Tablet,Delayed Release (Dr/Ec)
40 mg PO DAILY Qty: 30 0RF
Continued
loratadine [Claritin] 10 mg Tablet
10 mg PO DAILYPRN PRN (Reason: allergies)
Discharge Orders:
Discharge Patient (As Directed); Ordered 07/12/24
Ordered By: Adama Lewis
Discharge Date and Time
Print Language: IRISH
--- NOTE | 2024-07-12 11:16 | CM ---
Patient stable for d/c today. Patient will be starting on Eliquis, physician requested for patient to receive Eliquis 30 day coupon.
Met w/ patient bedside, aware of d/c today. Eliquis coupon provided.
Spouse will transport home
No CM needs at this time
Plan: Home, no needs
[2024-07-12] MEDS: ELIQUIS 10 MG PO (11:51)
== END 2024-07-12 12:20 | disposition home or self-care (01) | DRG 176 ==
LOC: 4 WEST ACU 22:17
PROVIDERS: Emergency Medicine; Physician Assistant Medical; ADMITTING PHYSICIAN Internal Medicine; ATTENDING PHYSICIAN Internal Medicine; CONSULT PHYSICIAN Nuclear Medicine Nuclear Cardiology; EMERGENCY PHYSICIAN Emergency Medicine; FAMILY PHYSICIAN Internal Medicine; OTHER PHYSICIAN Internal Medicine Critical Care Medicine
DX: I26.92 Saddle embolus of pulmonary artery without acute cor pulmonale (principal); I5A Non-ischemic myocardial injury (non-traumatic); I82.431 Acute embolism and thrombosis of right popliteal vein; I82.411 Acute embolism and thrombosis of right femoral vein; I10 Essential (primary) hypertension; E78.5 Hyperlipidemia, unspecified; I27.20 Pulmonary hypertension, unspecified; K44.9 Diaphragmatic hernia without obstruction or gangrene; K64.8 Other hemorrhoids; Z82.49 Family history of ischemic heart disease and other diseases of the circulatory system; Z79.01 Long term (current) use of anticoagulants
CPT/HCPCS: 71275; 74177; 80048; 80053; 80061; 83880; 84443; 84484; 85025; 85027; 85379; 85730; 86850; 86900; 86901; 93005; 93306; 93970; 96374; 99291; Q9967

== ENCOUNTER → 2024-09-06 08:14 | Outpatient (REF) | payer BC, SELFPAY | LOC: RCS 08:14 | PROVIDERS: ATTENDING PHYSICIAN Internal Medicine Interventional Cardiology; FAMILY PHYSICIAN Internal Medicine | DX: I26.99 Other pulmonary embolism without acute cor pulmonale (principal); I27.20 Pulmonary hypertension, unspecified | CPT/HCPCS: 93308; 93321; 93325 ==

== ENCOUNTER → 2024-09-26 08:10 | Outpatient (REF) | payer BC, SELFPAY | LOC: RCS 08:10 | PROVIDERS: ATTENDING PHYSICIAN Nurse Practitioner; FAMILY PHYSICIAN Internal Medicine | DX: R06.02 Shortness of breath (principal) | CPT/HCPCS: 93017; 93350 ==

== ENCOUNTER → 2024-10-13 12:49 | Outpatient (REF) | payer BC, SELFPAY | LOC: RAD 12:49 | PROVIDERS: ATTENDING PHYSICIAN Nurse Practitioner Adult Health; FAMILY PHYSICIAN Internal Medicine | DX: I26.92 Saddle embolus of pulmonary artery without acute cor pulmonale (principal); I82.411 Acute embolism and thrombosis of right femoral vein | CPT/HCPCS: 71275; 93971; Q9967 ==